=== PATIENT | female | born 1985 | race Caucasian/White ===

== ENCOUNTER 2017-12-08 01:10 | Emergency (ER) | payer SELFPAY, OTHER | END 2017-12-08 01:21 | disposition left against medical advice (07) | LOC: E/R 01:10 | DX: Z53.21 Procedure and treatment not carried out due to patient leaving prior to being seen by health care provider (principal) ==

== ENCOUNTER 2018-12-03 21:26 | Inpatient (IN) | payer OTHER ==
[2018-12-03] MEDS ORDERED: BUTORPHANOL 1 MG INJ IV (23:00)
[2018-12-03] MEDS ORDERED: LIDOCAINE 1% (MPF) 30 ML INJ INJ (23:00)
[2018-12-03] MEDS ORDERED: CARBOPROST 250 MCG INJ IM (23:00)
[2018-12-03] MEDS ORDERED: OXYTOCIN 30 UNITS/LR 500 ML IV (23:00)
[2018-12-03] MEDS ORDERED: METHYLERGONOVINE 0.2 MG INJ IM (23:00)
[2018-12-03] MEDS ORDERED: MISOPROSTOL 200 MCG TAB PR (23:00)
[2018-12-04] LABS: ADD MAN DIFF? NO
[2018-12-04 00:01] LABS: BASOPHILS % 0.3 % (0.0-2.0); EOSINOPHILS % 0.5 % (0.0-7.0); HEMATOCRIT 35.5 % (37.0-47.0); HEMOGLOBIN 12.1 g/dl (12.0-16.0); LYMPHOCYTES # 2.3 10^3/ul (0.8-2.9); LYMPHOCYTES % 32.1 % (15.0-51.0); MEAN CORPUSCULAR HEMOGLOBIN 31.8 pg (29.0-33.0); MEAN CORPUSCULAR HGB CONC 34.1 g/dl (32.0-37.0); MEAN CORPUSCULAR VOLUME 93.2 fl (82.0-101.0); MEAN PLATELET VOLUME 11.2 fl (7.4-10.4); MONOCYTE # 0.5 10^3/ul (0.3-0.9); MONOCYTES % 7.3 % (0.0-11.0); NEUTROPHIL # 4.3 10^3/ul (1.6-7.5); NEUTROPHILS % 59.5 % (39.0-77.0); PLATELET COUNT 261 10^3/UL (140-415); RED BLOOD COUNT 3.81 10^6/ul (4.20-5.40); RED CELL DISTRIBUTION WIDTH 12.1 % (11.5-14.5)
[2018-12-04 00:01] LABS: WHITE BLOOD COUNT 7.3 10^3/ul (4.8-10.8)
[2018-12-04 00:22] LABS: INR 0.89; PROTIME 12.2 Sec (11.9-14.9)
[2018-12-04 00:23] LABS: PARTIAL THROMBOPLASTIN TIME 27.3 Sec (23.0-35.0)
[2018-12-04 00:27] LABS: ALANINE AMINOTRANSFERASE 17 IU/L (13-69); ALBUMIN 3.4 g/dl (3.3-4.9); ALBUMIN/GLOBULIN RATIO 1.03; ALKALINE PHOSPHATASE 200 IU/L (42-121); ANION GAP 14 (5-13); ASPARTATE AMINO TRANSFERASE 17 IU/L (15-46); BILIRUBIN,INDIRECT 0.2 mg/dl (0-1.1); BILIRUBIN,TOTAL 0.2 mg/dl (0.2-1.3); BLOOD UREA NITROGEN 11 mg/dl (7-20); CARBON DIOXIDE 19 mmol/L (21-31); CHLORIDE 106 mmol/L (97-110); CREATININE 0.61 mg/dl (0.44-1.00); Estimated GFR > 60 mL/min (>60); GLUCOSE 97 mg/dl (70-220); SODIUM 139 mmol/L (135-144); TOTAL PROTEIN 6.7 g/dl (6.1-8.1)
[2018-12-04] MEDS: LACTATED RINGER'S 1,000 ML IV ×3 (00:47→03:06)
[2018-12-04 00:58] LABS: HEPATITIS B SURFACE ANTIGEN NEGATIVE (NEGATIVE)
[2018-12-04] MEDS: BUTORPHANOL 2 MG INJ IV (02:10)
[2018-12-04] MEDS: OXYTOCIN 30 UNITS/LR 500 ML IV ×3 (03:55→08:09)
[2018-12-04] MEDS: ACCU-CHEK XX ×9 (04:05→20:23)
[2018-12-04] MEDS: MINERAL OIL LIGHT 10 ML VIAL TOP (04:05)
[2018-12-04] MEDS ORDERED: LACTATED RINGER'S 1,000 ML IV* (04:20)
[2018-12-04] MEDS ORDERED: CARBOPROST 250 MCG INJ IM (04:30)
[2018-12-04] MEDS ORDERED: METHYLERGONOVINE 0.2 MG INJ IM (04:30)
[2018-12-04] MEDS ORDERED: MISOPROSTOL 200 MCG TAB PR (04:30)
[2018-12-04] MEDS ORDERED: OXYTOCIN 30 UNITS/LR 500 ML IV ×2 (04:30)
[2018-12-04] MEDS ORDERED: HYDROCODONE/APAP (5/325) TAB PO (04:30)
[2018-12-04] MEDS: IBUPROFEN 600 MG TAB PO ×4 (05:06→23:24)
[2018-12-04] MEDS: metFORMIN 500 MG TAB PO (09:28)
[2018-12-04 16:23] LABS: RAPID PLASMA REAGIN NONREACTIVE (NR)
[2018-12-05 05:11] LABS: ADD MAN DIFF? NO
[2018-12-05 05:28] LABS: WHITE BLOOD COUNT 8.7 10^3/ul (4.8-10.8)
[2018-12-05 05:28] LABS: BASOPHILS % 0.2 % (0.0-2.0); EOSINOPHILS # 0.1 10^3/ul (0.0-0.5); EOSINOPHILS % 0.7 % (0.0-7.0); HEMATOCRIT 31.5 % (37.0-47.0); HEMOGLOBIN 10.6 g/dl (12.0-16.0); LYMPHOCYTES # 2.6 10^3/ul (0.8-2.9); LYMPHOCYTES % 30.1 % (15.0-51.0); MEAN CORPUSCULAR HEMOGLOBIN 31.8 pg (29.0-33.0); MEAN CORPUSCULAR HGB CONC 33.7 g/dl (32.0-37.0); MEAN CORPUSCULAR VOLUME 94.6 fl (82.0-101.0); MEAN PLATELET VOLUME 11.8 fl (7.4-10.4); MONOCYTE # 0.5 10^3/ul (0.3-0.9); MONOCYTES % 6.2 % (0.0-11.0); NEUTROPHIL # 5.4 10^3/ul (1.6-7.5); NEUTROPHILS % 62.5 % (39.0-77.0); PLATELET COUNT 227 10^3/UL (140-415); RED BLOOD COUNT 3.33 10^6/ul (4.20-5.40); RED CELL DISTRIBUTION WIDTH 12.6 % (11.5-14.5)
[2018-12-05] MEDS: IBUPROFEN 600 MG TAB PO ×4 (05:39→23:25)
[2018-12-05] MEDS: ACCU-CHEK XX ×8 (08:55→21:01)
[2018-12-05] MEDS: metFORMIN 500 MG TAB PO (09:35)
[2018-12-05] MEDS: DIPHTH/TET/ACEL PERTUSS (ADULT) 0.5 ML VIAL IM* (10:55)
[2018-12-06] MEDS: IBUPROFEN 600 MG TAB PO ×2 (05:29→12:08)
[2018-12-06] MEDS: LANOLIN HPA 1 PKT TOP (08:38)
[2018-12-06] MEDS: metFORMIN 500 MG TAB PO (08:38)
== END 2018-12-06 17:10 | disposition home or self-care (01) | DRG 807 ==
LOC: OBT 21:26 → MS1 12-04 06:49 → L-D 21:27 → OBT 22:40 → L-D 22:40
PROVIDERS: Specialist
PROC: 10E0XZZ Delivery of Products of Conception, External Approach (ICD-10-PCS; principal; 2018-12-04)
PROC: 3E033VJ Introduction of Other Hormone into Peripheral Vein, Percutaneous Approach (ICD-10-PCS; 2018-12-04)
DX: O70.1 Second degree perineal laceration during delivery (principal); Z37.0 Single live birth; Z3A.37 37 weeks gestation of pregnancy
CPT/HCPCS: 80053; 82962; 85025; 85610; 85730; 86592; 86850; 86900; 86901; 87340; 90715